=== PATIENT | female | born 1995 | race Caucasian/White ===

== ENCOUNTER → 2018-11-06 | Outpatient (REF) | payer OTHER | LOC: M LAB REF 12:30 | PROVIDERS: ATTEND Physician Assistant | DX: R30.0 Dysuria (principal) ==

== ENCOUNTER → 2024-09-12 | Outpatient (REF) | payer OTHER ==
[2024-09-12 14:59] LABS: ALT/SGPT 11 U/L (7.0-40); AST/SGOT 16 U/L (<34); CALCIUM LEVEL 9.5 MG/DL (8.5-10.1); CARBON DIOXIDE LEVEL 26 MMOL/L (20-31); CHLORIDE LEVEL 103 MMOL/L (98-107); CHOLESTEROL LEVEL 162 MG/DL (<200); CHOLESTEROL RISK RATIO 2.56 (<5); CREATININE FOR GFR 0.63 MG/DL (0.55-1.30); GLOMERULAR FILTRATION RATE > 90.0 (>60); LDL CHOLESTEROL 87.1 MG/DL (<100); NON-HDL-C 98.9 MG/DL; POTASSIUM SERUM 4.0 MMOL/L (3.5-5.1); SODIUM LEVEL 142 MMOL/L (136-145); TRIGLYCERIDES LEVEL 59 MG/DL (<150)
[2024-09-12 15:14] LABS: ESTIMATED AVERAGE GLUCOSE 85.0 MG/DL (60-110)
== END ==
LOC: M SFHCCLAY 07:54
PROVIDERS: ATTEND Physician Assistant
DX: Z00.00 Encounter for general adult medical examination without abnormal findings (principal); B35.1 Tinea unguium